=== PATIENT | male | born 1970 | race Caucasian/White ===

== ENCOUNTER 2024-08-02 07:40 | Day surgery (SDC) | payer BC ==
[2024-08-02 10:03] VITALS: O2SAT 100; BMI 36.9
--- NOTE | 2024-08-02 11:09 | RAD REPORT ---
Exam: Fluoroscopy guided lumbar injection CLINICAL HISTORY:R41.89; D51.9; E55.9; I10; E78.5, E11.9, G45.9 TECHNIQUE: Risks, benefits and alternatives to the procedure explained to the patient and informed consent tsephanie ragsdale Patient placed prone into the fluoroscopy suite Skin and deeper tissues anesthetized with lidocaine 22-gauge spinal needle was advanced into the thecal sac utilizing fluoroscopy L2-3 level 12 cc clear CSF removed and sent to the lab Patient experienced no immediate complication IMPRESSION: Lumbar puncture
[2024-08-02 12:18] LABS: CSF Glucose 103 mg/dL (40-70)
[2024-08-02 12:34] VITALS: BP 158/80; TEMP 98
[2024-08-02 12:49] LABS: Appearance CLEAR (CLEAR); Body Fluid Source CSF; Body Fluid WBC 1 /mm^3; Color of Supernate Not Xanthochromic (Not Xantho); Color of fluid Colorless (COLORLESS); Fluid Total Volume 12.5 ml; Tube # #4
== END 2024-08-02 11:55 | disposition home or self-care (01) ==
LOC: DS 07:40
PROVIDERS: ATTEND Psychiatry & Neurology Neurology with Special Qualifications in Child Neurology
PROC: 009U3ZX Drainage of Spinal Canal, Percutaneous Approach, Diagnostic (ICD-10-PCS; principal; 2024-08-02)
PROC: B01BZZZ Fluoroscopy of Spinal Cord (ICD-10-PCS; 2024-08-02)
DX: R41.89 Other symptoms and signs involving cognitive functions and awareness (principal); D51.9 Vitamin B12 deficiency anemia, unspecified; E55.9 Vitamin D deficiency, unspecified; I10 Essential (primary) hypertension; E78.5 Hyperlipidemia, unspecified; E11.9 Type 2 diabetes mellitus without complications; G45.9 Transient cerebral ischemic attack, unspecified; G40.219 Localization-related (focal) (partial) symptomatic epilepsy and epileptic syndromes with complex partial seizures, intractable, without status epilepticus
CPT/HCPCS: 36415; 62272; 62328; 82945; 84157; 86592; 87015; 87116; 87206; 88108; 89050